=== PATIENT | male | born 1990 | race Caucasian/White ===

== ENCOUNTER 2019-11-14 08:39 | Outpatient (CLI) | payer OTHER, SELFPAY ==
--- NOTE | ~2019-11-14 | MR_ITS ---
EXAMINATION: MR brain/brain stem wo/w con DATE: 11/14/2019 12:55 CDT INDICATION: Unspecified intracranial injury. Loss of consciousness. TECHNIQUE: Magnetic resonance imaging (MRI) of the brain and brainstem was performed without intraven ous contrast. Sequences included sagittal and axial T1-weighted SE, axial diffusion-weighted FS SE, a xial T2*-weighted GRE, axial T2-weighted FLAIR Propeller, and axial T2-weighted Propeller. 17 cc of M ultihance administered IV. Apparent diffusion coefficient (ADC) maps were created. COMPARISON: No prior studies for comparison. FINDINGS: The brain volume and ventricular system are within normal limits. The brain parenchymal si gnal intensity pattern and barry/white matter is normal and there is no evidence of hemorrhage, space occupying masses or infarctions. The flow signal voids of the major arterial structures about the [place] and within the ted r dural venous sinuses appear grossly unremarkable and patent. The seventh and eighth cranial nerve complexes are normal. The mid sagittal image demonstrates a normal craniovertebral junction and parrish us callosum. The paranasal sinuses are grossly unremarkable. No abnormal contrast enhancement was appreciated. IMPRESSION: 1: Normal MRI brain. Reviewed, dictated and finalized at location A. IMPRESSION: 1: Normal MRI brain.
[2019-11-14 09:43] LABS: Estimated Glomerular Filt Rate > 60
== END 2019-11-14 08:40 | disposition home or self-care (01) ==
PROVIDERS: PCP Internal Medicine; Visit Provider Internal Medicine
DX: S06.9X9A Unspecified intracranial injury with loss of consciousness of unspecified duration, initial encounter (principal)
CPT/HCPCS: 36415; 70553; A9577

== ENCOUNTER 2020-07-18 09:55 | Outpatient (CLI) | payer OTHER, SELFPAY ==
[2020-07-18 19:48] LABS: SARS-CoV-2 RNA PCR Negative
== END 2020-07-18 09:56 | disposition home or self-care (01) ==
LOC: ANHCOVIDDT 09:55
PROVIDERS: PCP Internal Medicine; Visit Provider Internal Medicine Critical Care Medicine
DX: U07.1 COVID-19 (principal)
CPT/HCPCS: 87635; C9803; U0003

== ENCOUNTER 2020-07-20 16:39 | Outpatient (CLI) | payer OTHER, SELFPAY ==
--- NOTE | 2020-08-20 11:40 | P.SLEEP_ITS ---
Sleep Study Date of Study: 07/20/20 Ordering Provider: Interpreting Physician: Sleep Study Type: Polysomnogram Height: 1.73 m Weight: 87.997 kg Body Mass Index: 29.5 Neck Circumference: 40.64 cm [place]: 9 Reason for Sleep Study TBI,poor sleep quality. Sleep History Day time sleepiness,headache,frequent arousals at night. [facility] Past Medical History Medical History (Updated 06/15/20 @ 15:32 by Kimi Barry) Hypersomnia, unspecified Mixed hyperlipidemia Posttraumatic stress disorder with delayed expression TBI (traumatic brain injury) Vitamin D deficiency, unspecified Family History Family History (Updated 09/29/19 @ 14:57 by Kimi Barry) Father Hypertension Family history of malignant neoplasm Family history of diabetes mellitus in first degree relative Diabetes mellitus Sibling Asthma Other Family history of osteoarthritis Social History Social History Smoking status: Never smoker Alcohol intake: current Medications Home Medications Medication Instructions Recorded Confirmed Type dytadkfplm-shhevlirasrsn-yeuvsgkl 1 tablet PO Q6H PRN 09/29/19 07/05/20 History 50 mg-325 mg-40 mg tablet amitriptyline 50 mg tablet 50 mg PO QPM 30 Days #30 tablet 07/05/20 07/05/20 Rx cholecalciferol (vitamin D3) 50 200 mcg PO DAILY 90 Days #360 cap 07/05/20 07/05/20 Rx mcg (2,000 unit) capsule quetiapine 50 mg tablet 50 mg PO QPM 30 Days #30 tablet 07/05/20 07/05/20 Rx Sleep Procedure Standard polysomnogram Sleep Architecture Recording time-479 min,sleep time-457 min.Sleep efficiency-95.2% Sleep latency-6 min.Rem latency-396 min. Wake-23 min.N1-5.1%,N2-80.4%,N3-1.4%,R-13%. Supine sleep-34.8%. Respiratory Analysis No apneas,5 Xmwiruats-OXM-7.7 Arousals 211 arousals--120 spontaneous,89-leg movements. Only 4 PLMS,421 isolated leg movements. Periodic Limb Movements 421-isolated,4-ddauigvr-xsluh 0.5% Tremors right hand. Oximetry Data Mean 94.6,Min-90.No major desaturations. Snoring Profile rare Cardiac Profile Sinus [id number] EEG Profile unremarkable. Assessment and Plan Additional Plan No significant sleep disordered breathing identified.Multiple leg movements noted,Not periodic in nature but were causing fragmented sleep.
[2020-08-20 12:12] VITALS: BMI 29.5
== END 2020-07-20 16:40 | disposition home or self-care (01) ==
LOC: ANHCSM 16:40
PROVIDERS: PCP Internal Medicine; Visit Provider Internal Medicine
DX: G47.33 Obstructive sleep apnea (adult) (pediatric) (principal)
CPT/HCPCS: 95810